=== PATIENT | male | born 1995 | race Caucasian/White ===

== ENCOUNTER 2018-02-19 10:51 | Emergency (ER) | payer SELFPAY ==
[~2018-02-19] VITALS: Ht 188 cm; Wt 74.8 kg
--- NOTE | 2018-02-19 10:59 | NUR ---
A/OX4, AMBULATORY IN A STEADY GAIT, C/O WORSENING LEFT ANKLE PAIN/SWELLING/REDNESS SINCE HE GOT STUNG BY STING RAY X 10 DAYS. NAD VSS RR EVEN AND UNLABORED. KEPT COMFORTABLE. WILL CONT TO MONITOR
[2018-02-19] MEDS ORDERED: LEVOFLOXACIN (750 MG) 750 MG TABLET PO STA (11:05)
[2018-02-19] MEDS ORDERED: CLINDAMYCIN HCL 150 MG CAPSULE PO ONE ×2 (11:30→11:52)
[2018-02-19] MEDS ORDERED: DOXYCYCLINE HYCLATE (100 MG) 100 MG TABLET PO ONE (11:30)
[2018-02-19] MEDS ORDERED: DOXYCYCLINE HYCLATE (100 MG) 100 MG TABLET ONE (11:52)
[2018-02-19] MEDS ORDERED: LEVOFLOXACIN (750 MG) 750 MG TABLET ONE (11:52)
--- NOTE | 2018-02-19 11:57 | NUR ---
Patient discharged to home in stable condition. Written and verbal after care instructions given. Patient verbalizes understanding of instruction.
[2018-02-19 12:01] VITALS: BP 148/68
== END 2018-02-19 12:02 | disposition home or self-care (01) ==
LOC: EDBD 10:54 → ER 10:54
DX: T63.511A Toxic effect of contact with stingray, accidental (unintentional), initial encounter (principal); L03.116 Cellulitis of left lower limb; Y92.89 Other specified places as the place of occurrence of the external cause
CPT/HCPCS: 73610-TC; A4606; Z7610

== ENCOUNTER 2018-02-20 20:04 | Emergency (ER) | payer BC ==
[~2018-02-20] VITALS: Ht 188 cm; Wt 74.8 kg
--- NOTE | 2018-02-20 20:30 | NUR ---
Patient bib-self, with chief complaint of worsening redness, swelling, and pain in the left lower extremity s/p sting from stingray 1.5 weeks ago, currently on antibiotic therapy
[2018-02-20 21:07] VITALS: BP 124/65
== END 2018-02-20 21:10 | disposition home or self-care (01) ==
LOC: ER 20:04
DX: L03.116 Cellulitis of left lower limb (principal)
CPT/HCPCS: 99281; A4606; Z7610; Z7502